=== PATIENT | female | born 1960 | race Caucasian/White ===

== ENCOUNTER → 2020-10-27 | Outpatient (CLI) | payer MEDICARE ==
--- NOTE | 2020-10-30 13:42 | RAD ---
INDICATION: 60 years of age asymptomatic female patient presents for screening mammography. TECHNIQUE: Bilateral full field craniocaudal and mediolateral oblique images were obtained using dig ital technique and also analyzed with computer-aided detection software. COMPARISON: None available. Prior imaging performed at outside hospital not available at time of exam ination. . BREAST COMPOSITION: Category A: The breasts are predominantly fatty. FINDINGS: Focal asymmetry in the lateral, slightly superior left breast approximately 3 cm from the nipple is s een. Benign calcifications are present. No suspicious left breast microcalcification or architectura l distortion. No suspicious masses, microcalcifications or architectural distortion is present to suggest malignanc y in the right breast. The visualized axillae are unremarkable. IMPRESSION: Left breast focal asymmetry, findings for which additional imaging is advised. RECOMMENDATION: The patient will be contacted to submitted her prior imaging, performed at an outside institution, for the purposes of comparison. If the patient is unable to submit the images in a time ly manner (1-2 weeks), then the recommendation would be for additional imaging to be performed. BIRADS 0: INCOMPLETE - NEED ADDITIONAL IMAGING EVALUATION AND/OR PRIOR MAMMOGRAMS FOR COMPARISON. This study was interpreted with the benefit of Computerized Aided Detection (CAD). Patient information is entered into the reminder system with a target due date for the next screening mammogram. Mammography is the most sensitive method for finding small breast cancers, but it does not detect the m all and is not a substitute for careful clinical examination. A negative mammogram does not negate a clinically suspicious finding and should not result in delay in biopsying a clinically suspicious a bnormality. "Our facility is accredited by the [employer] Mammography Program." Electronically signed by: Geoff Franco MD (10/30/2020 1:39 PM) [id number]
== END ==
LOC: MAMMO 10-26 15:36
PROVIDERS: ATTEND Family Medicine
DX: Z12.31 Encounter for screening mammogram for malignant neoplasm of breast (principal); R92.1 Mammographic calcification found on diagnostic imaging of breast
CPT/HCPCS: 77067

== ENCOUNTER → 2020-11-16 | Outpatient (CLI) | payer MEDICARE ==
--- NOTE | 2020-11-17 14:30 | RAD ---
CLINICAL INDICATION: CARLOS ANDRADE, who is 60 years of age, presents for further evaluation of a fin ding noted on her most recent screening mammographic examination. On that examination a focal asymmet ry was reported within the left breast COMPARISON: Prior mammographic imaging 10/27/2020 as well as additional prior imaging was submitted fo r evaluation from 11/24/2015, 12/26/2017, 05/13/2019 12/26/2017 TECHNIQUE: Diagnostic views of the left breast were obtained, utilizing digital technique. BREAST COMPOSITION: The breasts are predominantly fatty. MAMMOGRAM FINDINGS: The focal asymmetry persisted on the spot compression views although was slightly less conspicuous. H owever as additional prior imaging was also submitted, this is stable back to 11/24/2015. Therefore further evaluation with ultrasound was performed. ULTRASOUND FINDINGS: Targeted ultrasound of the mammographic area of concern was performed. 12:00-3:00 position: Parenchymal tissue of normal echotexture is present. IMPRESSION: 1. Focal asymmetry is grossly unchanged to 11/24/2015. No mammographic evidence of malignancy in either breast. RECOMMENDATION: In the absence of new clinical symptoms or change in physical exam, annual screening mammography is r ecommended BIRADS 2: BENIGN Electronically signed by: Geoff Franco MD (11/17/2020 2:28 PM) [email or web address]
== END ==
LOC: MAMMO 14:43
PROVIDERS: ATTEND Family Medicine
DX: R92.2 Inconclusive mammogram (principal)
CPT/HCPCS: 76642; 77065